=== PATIENT | female | born 1980 | race Caucasian/White ===

== ENCOUNTER 2020-11-11 06:43 | Observation (INO) ==
[2020-11-11] MEDS ORDERED: CeFAZolin Syr 3,000MG/30 ML 3,000 MG/30 ML SYRINGE IVPB ONE (07:17)
[2020-11-11] MEDS ORDERED: *HR* Midazolam HCl 2 MG/2 ML VIAL ONE ×2 (07:17→08:08)
[2020-11-11] MEDS ORDERED: *HR* FentaNYL (PF) 100 MCG/2 ML VIAL ONE ×2 (07:17→07:42)
[2020-11-11] MEDS ORDERED: *HR* Propofol 200 MG/20 ML VIAL IVP ONE ×2 (07:17→07:42)
[2020-11-11] MEDS ORDERED: Lidocaine -MPF 2% 2 ML VIAL ONE ×3 (07:18→08:22)
[2020-11-11] MEDS ORDERED: Ringers Solution, Lactated 1,000 ML IVC SCH ×2 (07:30→17:51)
[2020-11-11] MEDS ORDERED: Scopolamine Patch 1.5 MG PATCH.TD72 TD ONE (07:37)
[2020-11-11] MEDS ORDERED: *HR* HYDROmorphone 2 MG TABLET PO PRN (07:37)
[2020-11-11] MEDS ORDERED: Famotidine 20 MG/2 ML VIAL IVP ONE (07:37)
[2020-11-11] MEDS ORDERED: *HR* Labetalol 20 MG/4 ML SYRINGE IVP PRN (07:37)
[2020-11-11] MEDS ORDERED: Pregabalin 75 MG CAPSULE PO ONE (07:37)
[2020-11-11] MEDS ORDERED: Acetaminophen IV 1,000 MG/100 ML BAG IVPB ONE (07:37)
[2020-11-11] MEDS ORDERED: Bupivacaine 0.5%-Epi 1:200,000 50 ML VIAL ONE (07:39)
[2020-11-11] MEDS ORDERED: Ondansetron 4 MG/2 ML VIAL ONE (07:45)
[2020-11-11] MEDS ORDERED: *HR* Succinylcholine 200 MG/10 ML VIAL IVP ONE (08:07)
[2020-11-11] MEDS ORDERED: Lidocaine HCL 4 ML Topical Solution (Laryng-O-Jet Kit Sterile Pak) TP ONE (08:08)
[2020-11-11] MEDS ORDERED: Ketorolac 30 MG/ML VIAL ONE (08:39)
[2020-11-11] MEDS: *HR* HYDROmorphone PF 0.5 MG/0.5 ML SYRINGE IVP PRN ×2 (08:50→09:01)
[2020-11-11] MEDS: *HR* OxyCODONE Immed Rel 5 MG TABLET PO PRN ×3 (08:57→20:51)
[2020-11-11] MEDS ORDERED: *HR* OxyCODONE Immed Rel 5 MG TABLET PO PRN (14:31)
[2020-11-11] MEDS ORDERED: Levalbuterol Neb 1.25 MG/3 ML IH ONE (15:47)
[2020-11-11 16:50] LABS: Adenovirus Not Detected (Not Detect); Bordetella Pertussis Not Detected (Not Detect); Chlamydophila pneumoniae Not Detected (Not Detect); Coronavirus 229E Not Detected (Not Detect); Coronavirus HKU1 Not Detected (Not Detect); Coronavirus NL63 Not Detected (Not Detect); Coronavirus OC43 Not Detected (Not Detect); Human Metapneumovirus Not Detected (Not Detect); Human Rhinovirus/Enterovirus DETECTED (Not Detect); Influenza A Subtype 2009 H1 Not Detected (Not Detect); Influenza B Not Detected (Not Detect); Mycoplasma pneumoniae Not Detected (Not Detect); Parainfluenza Virus 1 Not Detected (Not Detect); Parainfluenza Virus 2 Not Detected (Not Detect); Parainfluenza Virus 3 Not Detected (Not Detect); Parainfluenza Virus 4 Not Detected (Not Detect); Respiratory Syncytial Virus Not Detected (Not Detect); SARS-CoV-2 Not Detected (Not Detect)
[2020-11-11] MEDS ORDERED: HYDROcodone BIT/Homatropine 5 MG TABLET PO PRN (17:51)
[2020-11-11] MEDS ORDERED: *HR* Promethazine 25 MG/ML VIAL IM PRN (17:51)
[2020-11-11] MEDS ORDERED: Naloxone 0.4 MG/ML INJ IVP PRN (17:51)
[2020-11-11] MEDS ORDERED: Sennosides 8.6 MG TABLET PO PRN (17:51)
[2020-11-11] MEDS ORDERED: Ondansetron 4 MG/2 ML VIAL IVP PRN (17:51)
[2020-11-11] MEDS ORDERED: Ibuprofen 800 MG TABLET PO PRN (17:51)
[2020-11-11] MEDS ORDERED: MOM Conc 10 ML UD.LIQ PO PRN (17:51)
[2020-11-11] MEDS: Gabapentin 300 MG CAPSULE PO SCH (20:41)
[2020-11-11] MEDS: Ascorbic Acid 500 MG TABLET PO SCH (20:41)
[2020-11-11] MEDS: ceFAZolin 3,000 MG in 0.9 % Sodium Chloride 100 ML IVPB SCH (20:53)
[2020-11-12 01:30] LABS: Basophils % 0.1 %; Hemoglobin 12.1 g/dL (11.5-15.4); Immature Granulocytes % 0.3 % (0-4); Lymphocytes # 1.2 K/mcL (0.6-4.6); Lymphocytes % 8.6 %; Mean Corpuscular HGB Conc 32.7 g/dL (31.6-35.5); Mean Corpuscular Hemoglobin 32.9 pg (28.0-33.3); Mean Corpuscular Volume 100.5 fL (83.0-100.0); Mean Platelet Volume 11.2 fL (9.4-12.4); Monocytes # 0.6 K/mcL (0.0-1.3); Monocytes % 4.2 %; Neutrophils # 11.9 K/mcL (1.6-8.9); Platelet Count 242 K/mcL (140-400); Red Blood Count 3.68 M/mcL (3.82-4.97); Red Cell Distribution Width 13.5 % (11.5-14.5); Segmented Neutrophils % 86.8 %; White Blood Count 13.7 K/mcL (4.3-11.1)
[2020-11-12 01:47] LABS: BUN/Creatinine Ratio 19 (6-26); Blood Urea Nitrogen 19 mg/dL (6-20); Calcium 8.4 mg/dL (8.6-10.3); Carbon Dioxide 23 mEq/L (23-29); Chloride 105 mEq/L (98-107); Glucose 125 mg/dL (70-105); Osmolality,Calculated 286 (280-300); Potassium 4.3 mEq/L (3.5-5.1); Sodium 136 mEq/L (136-145); eGFR For African Americans > 60 (> 60); eGFR For Non-African Americans > 60 (> 60)
[2020-11-12] MEDS: ceFAZolin 3,000 MG in 0.9 % Sodium Chloride 100 ML IVPB SCH (04:00)
[2020-11-12] MEDS: *HR* OxyCODONE Immed Rel 5 MG TABLET PO PRN ×2 (04:05→09:23)
[2020-11-12] MEDS: Venlafaxine XR (24 HR) 150 MG CAP.ER.24H PO SCH ×2 (07:37→07:41)
[2020-11-12] MEDS: Gabapentin 300 MG CAPSULE PO SCH (07:37)
[2020-11-12] MEDS: Ascorbic Acid 500 MG TABLET PO SCH (07:37)
[2020-11-12] MEDS ORDERED: Aspirin Enteric Coated 81 MG Tablet PO SCH (09:00)
[2020-11-12] MEDS ORDERED: Famotidine 20 MG TABLET PO SCH (09:00)
[2020-11-12] MEDS ORDERED: Multivit/Ca/Min/Fe/FA 1 TAB TABLET PO SCH (09:00)
[2020-11-12] MEDS ORDERED: Tiotropium 10 INH DOSE IH SCH (10:00)
[2020-11-12 11:52] VITALS: BP 116/70
== END 2020-11-12 13:29 | disposition home or self-care (01) ==
LOC: SAMDAY 06:43 → 3NENU 06:43
PROVIDERS: ADMIT Orthopaedic Surgery; ATTEND Orthopaedic Surgery